=== PATIENT | male | born 1995 | race Caucasian/White ===

== ENCOUNTER 2016-08-07 07:47 | Emergency (ER) | payer MEDICAID ==
[~2016-08-07] VITALS: Ht 170.2 cm; Wt 98.0 kg
[2016-08-07 07:52] VITALS: BP 123/69
--- NOTE | 2016-08-07 07:55 | NUR ---
Patient ambulated to bed 05.
--- NOTE | 2016-08-07 07:58 | NUR ---
PT CAME TO ER DUE TO FEVER X3 DAYS WITH NAUSEA AND DIARRHEA;PT STATES HE HAS ABDOMINAL PAIN W/PAIN SCALE OF 4/10;DENIES CP/SOB/COUGH AT THIS TIME;AAOX4;NO ACUTE DISTRESS NOTED AT THIS TIME;STEADY GAIT;UNLABORED BREATHING W/ SYMMETRICAL CHEST EXPANSION;HOB ELEVATED;NEEDS ATTENDED;SAFETY MEASURES DONE;POSITION FOR COMFORT;MD MADE AWARE OF PT'S CONDITION;
--- NOTE | 2016-08-07 08:06 | NUR ---
Dr. Kay evaluating patient at bedside.
[2016-08-07] MEDS ORDERED: ONDANSETRON 4 MG ODT PO ONE (08:15)
[2016-08-07] MEDS ORDERED: ONDANSETRON 4 MG ODT ONE (08:25)
--- NOTE | 2016-08-07 08:27 | NUR ---
PT RESTING ON BED;NO ACUTED DISTRESS NOTED AT THGIS TIME;WILL CONTINUE TO MONITOR PT.
--- NOTE | 2016-08-07 08:40 | NUR ---
Patient discharged with v/s stable. Written and verbal after care instructions given and explained. Patient alert, oriented and verbalized understanding of instructions. Ambulatory with steady gait. All questions addressed prior to discharge. ID band removed. Patient advised to follow up with PMD. Rx of CIPRO,ZOFRAN AND MOTRIN given. Patient educated on indication of medication including possible reaction and side effects. Opportunity to ask questions provided and answered.ENCOURAGED PT TO DRINK A LOT OF FLUIDS TO BE HYDRATED;
[2016-08-07 08:42] VITALS: BP 118/68
== END 2016-08-07 08:40 | disposition home or self-care (01) ==
LOC: MED 07:47
DX: R19.7 Diarrhea, unspecified (principal); R10.32 Left lower quadrant pain; R50.9 Fever, unspecified; R11.0 Nausea
CPT/HCPCS: 99283; S0119

== ENCOUNTER 2020-04-21 19:06 | Emergency (ER) | payer MEDICAID, OTHER ==
[~2020-04-21] VITALS: Ht 170.2 cm; Wt 95.3 kg
[2020-04-21 19:44] VITALS: BP 128/55
--- NOTE | 2020-04-21 20:40 | NUR ---
ERMD EVALUATING PATIENT IN TENT.
--- NOTE | 2020-04-21 21:30 | NUR ---
NOVEL COVID SWAB COLLECTED AND SENT TO LAB.
--- NOTE | 2020-04-21 21:44 | NUR ---
ERMD EVLAUATED, TREATED, AND D/C PATIENT. NO NURSING INTERVENTION NEEDED.
[2020-04-21 21:45] VITALS: BP 122/65
--- NOTE | 2020-04-21 21:45 | NUR ---
Patient discharged with v/s stable. Written and verbal after care instructions given and explained. Patient verbalized understanding. Ambulatory with steady gait. All questions addressed prior to discharge. Advised to follow up with PMD.
== END 2020-04-21 21:45 | disposition home or self-care (01) ==
LOC: MED 19:06
DX: U07.1 COVID-19 (principal)
CPT/HCPCS: 99283; U0003

== ENCOUNTER 2021-11-17 22:48 | Emergency (ER) | payer OTHER ==
[~2021-11-17] VITALS: Ht 170.2 cm; Wt 95.3 kg
[2021-11-17 22:55] VITALS: BP 139/79
--- NOTE | 2021-11-17 22:56 | NUR ---
SEEN AND EXAMINED BY FAISAL WITH ORDERS AND CARRIED OUT
[2021-11-17] MEDS ORDERED: ONDANSETRON 4 MG ODT PO ONE (23:00)
[2021-11-17] MEDS ORDERED: ONDA-188 SL (23:20)
[2021-11-17 23:33] VITALS: BP 139/79
--- NOTE | 2021-11-17 23:33 | NUR ---
Patient discharged with v/s stable. Written and verbal after care instructions given and explained by Dr. Dodd. Patient alert, oriented and verbalized understanding of instructions. Ambulatory with steady gait. All questions addressed prior to discharge. ID band removed. Patient advised to follow up with PMD. Rx of Zofran given. Patient educated on indication of medication including possible reaction and side effects. Opportunity to ask questions provided and answered.
== END 2021-11-17 23:33 | disposition home or self-care (01) ==
LOC: MED 22:48
DX: A08.4 Viral intestinal infection, unspecified (principal)
CPT/HCPCS: 99283; Q0162